=== PATIENT | male | born 1945 | race Caucasian/White ===

== ENCOUNTER 2024-05-28 18:27 | Inpatient (IN) ==
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
[2024-05-28 19:40] LABS: Basophils # (auto) 0.14 K/uL (0.00-0.20); Eosinophils # (auto) 0.22 K/uL (0.00-0.50); Eosinophils % (auto) 1.5 %; Hematocrit (blood only) 44.1 % (42.0-52.0); Hemoglobin 15.2 g/dl (14.0-18.0); Immature Granulocytes # (auto) 0.06 K/uL (0.01-0.20); Immature Granulocytes % (auto) 0.4 %; Lymphocytes # (auto) 1.85 K/uL (1.20-3.40); Lymphocytes % (auto) 12.9 %; Mean Corpuscular Hemoglobin 28.7 pg (25.0-34.0); Mean Corpuscular Hgb Conc 34.5 g/dL (32.0-36.0); Mean Corpuscular Volume 83.2 fL (80.0-100.0); Mean Platelet Volume 9.5 fL (9.4-12.4); Monocytes # (auto) 1.18 K/uL (0.11-0.59); Monocytes % (auto) 8.2 %; Neutrophils # (auto) 10.93 K/uL (1.40-6.50); Platelet Count 247 K/uL (130-400); RDW Coefficient of Variation 13.7 % (11.5-14.5); RDW Standard Deviation 41.7 fL (36.4-46.3); White Blood Count 14.38 K/ul (4.8-10.8)
[2024-05-28 19:57] LABS: Albumin Globulin Ratio 1.1 (0.9-2); BUN Creatinine Ratio 25.4 (10-20); Bilirubin,Total 0.5 mg/dl (0.2-1.0); Calcium 9.4 mg/dl (8.6-10.3); Creatinine Clr Calc Pharmacy 58.5 ml/min; Globulin 3.6 gm/dl (2.5-4.0); Potassium 3.7 mmol/L (3.5-5.1); Total Protein 7.6 gm/dl (6.0-8.3)
[2024-05-28 20:07] LABS: Partial Thromboplastin Time 26 Seconds (21-31); Prothrombin Time 11.3 Seconds (9.0-12.0)
[2024-05-28] MEDS: SODIUM CHLORIDE 0.9% 1,000 ML IV ONE (20:37)
[2024-05-28] MEDS: HALOPERIDOL LACTATE 5 MG/ML 1 ML VIAL IV STA (20:37)
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
[2024-05-28] MEDS ORDERED: PROMETHAZINE 6.25 MG/50.25 ML BAG IV PRN (21:53)
[2024-05-28] MEDS ORDERED: ACETAMINOPHEN 325 MG TAB PO PRN (21:53)
[2024-05-28] MEDS: METOPROLOL TARTRATE 25 MG TAB PO STA (23:28)
--- OUTSIDE RECORDS SUMMARY | 2024-05-29 00:37 | External Medical Summary | Summary of Care ---
Author Name Unknown Organization [facility] Address [address] [place] [address] Phone [phone] Care Team Providers Care Senior Payroll Manager Name Role Phone Roger Rivas MD Primary Care Provider [phone]- [phone] Encounter Details Date Type Department Care Team (Late st Contact Info) Description 05/22/2024 Orders Only Outcomes Research Department [address] [place] [address] Evelyn Panchal CHRA [employer] [facility] Other*[id number] Allergies Active Allergy Reactions Criticality Noted Date Comments Atorvastatin Calcium 11/11/2005 Facial swelling Lisinopril 10/18/2006 Dry cough Meloxicam 04/01/2010 delrium Simvastatin 11/11/2005 Facial sweliing documented as of this encounter (statuses as of 05/22/2024) Medications ASPIRIN 81 MG PO CHEW One pill by mouth once a day with food 0 0 06/29/19 08 Active INSULIN SYRINGES (DISPOSABLE) U-100 0.3 ML MISCIndications:DM type 2, goal A1c below 7 use as directed daily 1 Box 11 01/24/20 13 Active nitroglycerin (NITROSTAT) 0.4 MG SUBLIndications:Ch est pain one tab under tongue as needed for chest pain maximum 3 doses 25 Tab 6 06/12/19 17 Active traMADol (ULTRAM) 50 MG TabletIndications: Acute bilateral thoracic back pain,Acute bilateral low back pain without sciatica TAKE 1 TABLET BY MOUTH EVERY 6 HOURS WITH 325 MG OF TYLENOL FOR PAIN 60 Tab 08/25/19 18 Active Blood Glucose Monitoring Suppl (ONETOUCH VERIO) w/Device KITIndications:Typ e 2 diabetes mellitus with hemoglobin A1c goal of less than 8.0% (HCC) Use to check blood sugars daily E11.9 1 Kit 12/15/19 18 Active Additional Information Patient not taking.Reported on 12/24/2022 Glucose Blood (ONETOUCH VERIO) STRPIndications:Ty pe 2 diabetes mellitus with hemoglobin A1c goal of less than 8.0% (HCC) Use to check blood sugars daily E11.9 100 Strip 11 12/15/19 18 Active Additional Information Patient not taking.Reported on 12/24/2022 ONETOUCH ULTRASOFT LANCETS MISCIndications:Ty pe 2 diabetes mellitus with hemoglobin A1c goal of less than 8.0% (HCC) Use to check blood sugars daily 1 Box Dosing Unit 11 12/15/19 18 Active Vitamin B-12 5000 MCG Oral Lozenge Take by mouth daily. Active Acetaminophen ER 650 MG Oral Tablet Extended Release Take 1 Tab by mouth every 8 hours as needed for Pain, Moderate. 30 Tab 5 10/03/19 21 Active Metoprolol Tartrate 25 MG Oral Tablet (Lopressor)Indicat ions:ASCVD (arteriosclerotic cardiovascular disease),Essential hypertension with goal blood pressure less than 140/90 TAKE 1 TABLET BY MOUTH TWICE A DAY 180 Tablet 2 06/19/19 24 Active Tamsulosin HCl 0.4 MG Oral Capsule (Flomax)Indication s:BPH with obstruction/lower urinary tract symptoms TAKE 1 CAPSULE BY MOUTH EVERY MORNING 90 Capsule 3 07/08/19 24 Active Insulin Aspart Prot & Aspart (70-30) 100 UNIT/ML Subcutaneous Suspension (NovoLOG Mix 70/30)Indications: Type 2 diabetes mellitus with hemoglobin A1c goal of less than 8.0% ([facility]) Inject 15 Units under the skin daily with breakfast AND 24 Units daily with dinner. 10 mL 5 12/01/19 24 Active oxyBUTYnin Chloride ER 5 MG Oral Tablet Extended Release 24 Hour (Ditropan XL)Indications:Uri nary frequency TAKE 1 TABLET BY MOUTH EVERY DAY IN THE MORNING 90 Tablet 3 01/12/20 24 Active Topiramate 50 MG Oral Tablet (topAMAX)Indicatio ns:Essential tremor TAKE 1 TABLET BY MOUTH EVERY DAY IN THE MORNING 90 Tablet 3 01/12/20 24 Active BD Insulin Syringe U/F 30G X 1/2" 0.5 ML (Insulin Syringe-Needle U-100) USE TWICE PER DAY DIRECTED 200 Each 3 01/12/20 24 Active Carbidopa-Levodopa 25-100 MG Oral Tablet (Sinemet)Indicatio ns:Parkinson's disease (HCC) TAKE 1 TABLET BY MOUTH EVERY DAY IN THE MORNING 90 Tablet 3 01/12/20 24 Active Folic Acid 1 MG Oral Tablet TAKE 1 TABLET BY MOUTH EVERY DAY IN THE MORNING 90 Tablet 3 01/12/20 24 Active documented as of this encounter (statuses as of 05/22/2024) Active Problems Problem Noted Date Diagnosed Date Diabetes mellitus with nephropathy 05/28/2020 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 documented as of this encounter (statuses as of 05/22/2024) Resolved Problems Problem Noted Date Diagnosed Date Resolved Date Kidney disease, chronic, sta ge III (GFR 30-59 ml/min) 03/30/2016 12/04/2016 Overview: Per CKD protocol #1 Sebaceous cyst 11/01/2013 10/03/2014 Bronchitis, complicated 08/21/201309/19 Cough 08/21/2013 10/03/2014 Viral URI with cough 08/21/2013 015 HTN, goal below 140/80 11/09/201109/21 Overview: Per HTN Protocol #27. JEFFREY inhibitor intolerance 09/03/2011 Essential and other specified forms of tremor 09/03/19 11 10/03/2014 Obesity, morbid (more than 1 00 lbs over ideal weight or BMI > 40) 09/03/2009 10/13/2016 Overview (06/10/2015): Per Obesity Protocol, #19 ICD-10 update of inactive term HTN, GOAL BELOW 130/80 04/18/200911/11 Overview (04/18/2009): Per HTN Taxonomy. Type 2 diabetes mellitus wit h hemoglobin A1c goal of less than 7.0% 01/17/2009 04/28/2013 Overview (07/16/2015): Per Diabetes Taxonomy. ICD-10 update of inactive term HTN, goal below 140/90 01/16/200904/18 Overview (04/18/2009): Per HTN Taxonomy. Major depressive disorder 04/09/2008 Overview (01/12/2017): ICD-10 update of inactive term Statin intolerance 06/16/2006 7 REFUSES INFLUENZA VAC 02/17/20062005 CORONARY ATHEROSCLER. OF SUMANTH SULEAMN CORONARY VESSEL 02/17/2006 05/31/2014 REFUSED INFLUENZA VAC 02/17/20062008 Type 2 diabetes mellitus wit h hemoglobin A1c goal of less than 7.0% 12/25/2004 01/17/2009 Overview (07/16/2015): Per Diabetes Taxonomy. ICD-10 update of inactive term Dyslipidemia, goal to be determined 12/25/2004 03/07/2009 Overview (03/07/2009): Per Lipid Taxonomy. HTN, goal below 130/80 10/03 documented as of this encounter (statuses as of 05/22/2024) Immunizations Name Administration Dates Next Due COVID-19 mRNA, LNP-s, No Pre serve, 2-Dose Series (Pfizer) 07/10/2020,06/19/2020 Pneumococcal Conjugate Vacc, 13 Valent (Prevnar) 06/05/2015 Pneumococcal Polysaccharide PPV23 (Pneumovax) 09/03/2011,11/11/2005 Seasonal Influenza Vac., MDV , IM, 0.5 mL (Fluzone) 01/31/2014,01/23/2013,01/06/2012,11/21,01/06/2010,12/18/2008,04/03/19 09(Deferred: Patient Refused) Seasonal Influenza, PF, 6 M & above, IM , (FluLaval or Fluzone) 12/20/2019,12/14/2018,12/14/2017 12/15/2019 Seasonal Influenza, Quadriva lent Hd (Fluzone Hd) 12/24/2022,11/29/2020 Seasonal Influenza, Quadriva lent, No Preserve, IM 12/04/2016,02/17/2016,02/04/2015 TD, Preservative Free 06/13/2018 TDAP, Age 7 and older, IM (Adacel) 10/31/2007 documented as of this encounter Social History Tobacco Use Types Packs/Day Years Used Date Smoking Tobacco: Former Cigarettes Q uit: 03/22/1989 Smokeless Tobacco: Never Alcohol Use Standard Drinks/Week Comments No 0 (1 standard drink = 0.6 oz pur e alcohol) PHQ-2 Answer Date Recorded PHQ Adult Total Score 1 09/01/2021 Hunger Vital Sign Answer Date Recorded Within the past 12 months, y ou worried that your food would run out before you got the money to buy more. Never true 09/02/19 22 Within the past 12 months, t he food you bought just didn't last and you didn't have money to get more. Never true 09/01/2021 Sex and Gender Information Value Date Recorded Sex Assigned at Male 06/13/2018 10:39 AM EDT Legal Sex Male 7:19 AM EST Gender Identity Male 06/13/2018 10:39 AM EDT Sexual Orientation Straight 06/13/2018 10 :39 AM EDT documented as of this encounter Plan of Treatment Scheduled Orders Name Type Priority Associated Diagnoses Orde r Schedule MYCODE SUBSEQUENT ADULT Lab Routine [employer] Other*[id number] Every 6 Months for 2 Occurrences starting 05/22/2024 until 06/11/2025 Scheduled Procedures Name Priority Associated Diagnoses Date/Ti me COLONOSCOPY FLEXIBLE PROXIMAL DIAGNOSTIC Recall Colon cancer screening Health Maintenance Due Date Last Done Comments Zoster Vaccines (1 of 2) 1994 Adult Wellness Visit 09/01/2022 09/01/2021, 08/30/19 21 Depression Monitoring 09/01/2022 09/01/2021 Diabetic Eye Exam 09/01/2022 09/01/2021, , 11/23/2019, Additional history exists Diabetic Foot Exam 09/01/2022 09/01/2021, 0 08/29/2020, 11/23/2019, Additional history exists HbA1c 06/25/2023 12/24/2022, 05/21, 12/11/2021, Additional history exists COVID-19 Vaccine ( season) 2023 07/10/2020, 06/19/2020 Influenza Vaccine (FLU shot) (#1) 2023 12/24/2022, 11/29/2020, 12/20/2019, Additional history exists GFR 12/25/2023 12/24/2022, 05/21, 12/11/2021, Additional history exists Albumin/Creatinine Ratio 01/23/2024 023, 02/02/2022, 12/11/2021, Additional history exists DTap/Tdap Vaccines (3 - Td or Tdap) 06/13/2028 06/13/2018, 10/31/2007 Pneumococcal Vaccine: 50+ Years Completed 06/05/2015, 09/03/2011, 11/11/2005 HPV (Gardasil) Vaccine Aged Out No lo nger eligible based on patient's age to complete this topic Hepatitis B Vaccine Aged Out No longe r eligible based on patient's age to complete this topic MENINGOCOCCAL (MENACTRA/MENVEO) Aged Out No longer eligible based on patient's age to complete this topic Meningitis B Vaccine (Bexsero/Trumemba) Aged Out No longer eligible based on patient's age to complete this topic documented as of this encounter Medical Devices Not on filedocumented as of this encounter Visit Diagnoses Diagnosis [employer] Other*[id number] documented in this encounter Care Teams Senior Payroll Manager Relationship Specialty Start Date End Date Roger Rivas MD PCP - General 12/03/04 documented as of this encounter
--- OUTSIDE RECORDS SUMMARY | 2024-05-29 00:38 | External Medical Summary | Summary of Care ---
Author Name Unknown Organization [facility] Address [address] [place] [address] Phone [phone] Care Team Providers Care Waistline Joiner Overlock Name Role Phone Cheryl Patel MD Primary Care Provider [phone]- [phone] Reason for Visit * Reason Comments eRx-Medication Refill Encounter Details Date Type Department Care Team (Late st Contact Info) Description 01/10/2024 Refill [facility] [address] [place] [address] Cheryl Patel MD [address] [place] [address] Urinary frequency; Essential tremor; Parkinson's disease (HCC) Allergies Active Allergy Reactions Criticality Noted Date Comments Atorvastatin Calcium 11/11/2005 Facial swelling Lisinopril 10/18/2006 Dry cough Meloxicam 04/01/2010 delrium Simvastatin 11/11/2005 Facial sweliing documented as of this encounter (statuses as of 01/12/2024) Medications Medication Sig Dispensed Refills Start Date End Date Status ASPIRIN 81 MG PO CHEW One pill by mouth once a day with food 0 0 8 Active INSULIN SYRINGES (DISPOSABLE) U-100 0.3 ML MISCIndications:DM type 2, goal A1c below 7 use as directed daily 1 Box 11 3 Active nitroglycerin (NITROSTAT) 0.4 MG SUBLIndications:Melanie st pain one tab under tongue as needed for chest pain maximum 3 doses 25 Tab 6 7 Active traMADol (ULTRAM) 50 MG TabletIndications:A cute bilateral thoracic back pain,Acute bilateral low back pain without sciatica TAKE 1 TABLET BY MOUTH EVERY 6 HOURS WITH 325 MG OF TYLENOL FOR PAIN 60 Tab 8 Active Blood Glucose Monitoring Suppl (Venuefox) w/Device KITIndications:Type 2 diabetes mellitus with hemoglobin A1c goal of less than 8.0% (HCC) Use to check blood sugars daily E11.9 1 Kit 8 Active Additional Information Patient not taking.Reported on 12/24/2022 Glucose Blood (Venuefox) STRPIndications:Typ e 2 diabetes mellitus with hemoglobin A1c goal of less than 8.0% (HCC) Use to check blood sugars daily E11.9 100 Strip 11 8 Active Additional Information Patient not taking.Reported on 12/24/2022 Base Forty[employer]CH ULTRASOFT LANCETS MISCIndications:Typ e 2 diabetes mellitus with hemoglobin A1c goal of less than 8.0% (HCC) Use to check blood sugars daily 1 Box Dosing Unit 11 8 Active Vitamin B-12 5000 MCG Oral Lozenge Take by mouth daily. Active Acetaminophen ER 650 MG Oral Tablet Extended Release Take 1 Tab by mouth every 8 hours as needed for Pain, Moderate. 30 Tab 5 1 Active Metoprolol Tartrate 25 MG Oral Tablet (Lopressor)Indicati ons:ASCVD (arteriosclerotic cardiovascular disease),Essential hypertension with goal blood pressure less than 140/90 TAKE 1 TABLET BY MOUTH TWICE A DAY 180 Tablet 2 4 Active Tamsulosin HCl 0.4 MG Oral Capsule (Flomax)Indications :BPH with obstruction/lower urinary tract symptoms TAKE 1 CAPSULE BY MOUTH EVERY MORNING 90 Capsule 3 4 Active Insulin Aspart Prot & Aspart (70-30) 100 UNIT/ML Subcutaneous Suspension (NovoLOG Mix 70/30)Indications:T ype 2 diabetes mellitus with hemoglobin A1c goal of less than 8.0% (HCC) Inject 15 Units under the skin daily with breakfast AND 24 Units daily with dinner. 10 mL 5 4 Active oxyBUTYnin Chloride ER 5 MG Oral Tablet Extended Release 24 Hour (Ditropan XL)Indications:Urin debbie frequency TAKE 1 TABLET BY MOUTH EVERY DAY IN THE MORNING 90 Tablet 3 4 Active Topiramate 50 MG Oral Tablet (topAMAX)Indication s:Essential tremor TAKE 1 TABLET BY MOUTH EVERY DAY IN THE MORNING 90 Tablet 3 4 Active BD Insulin Syringe U/F 30G X 1/2" 0.5 ML (Insulin Syringe-Needle U-100) USE TWICE PER DAY DIRECTED 200 Each 3 4 Active Carbidopa-Levodopa 25-100 MG Oral Tablet (Sinemet)Indication s:Parkinson's disease (HCC) TAKE 1 TABLET BY MOUTH EVERY DAY IN THE MORNING 90 Tablet 3 4 Active Folic Acid 1 MG Oral Tablet TAKE 1 TABLET BY MOUTH EVERY DAY IN THE MORNING 90 Tablet 3 4 Active BD Insulin Syringe U/F 30G X 1/2" 0.5 ML (Insulin Syringe-Needle U-100) USE TWICE PER DAY DIRECTED 200 Each 1 3 01/12/20 24 Discontinued Topiramate 50 MG Oral Tablet (topAMAX)Indication s:Essential tremor TAKE 1 TABLET BY MOUTH EVERY DAY IN THE MORNING 90 Tablet 3 4 01/12/20 24 Discontinued oxyBUTYnin Chloride ER 5 MG Oral Tablet Extended Release 24 Hour (Ditropan XL)Indications:Urin debbie frequency TAKE 1 TABLET BY MOUTH EVERY DAY IN THE MORNING 90 Tablet 3 4 01/12/20 24 Discontinued Carbidopa-Levodopa 25-100 MG Oral Tablet (Sinemet)Indication s:Parkinson's disease (HCC) TAKE 1 TABLET BY MOUTH EVERY DAY IN THE MORNING 90 Tablet 3 4 01/12/20 24 Discontinued Folic Acid 1 MG Oral Tablet TAKE 1 TABLET BY MOUTH EVERY DAY IN THE MORNING 90 Tablet 4 01/12/20 24 Discontinued documented as of this encounter (statuses as of 01/12/2024) Active Problems Problem Noted Date Diagnosed Date [...] A1c goal of less than 8.0% 04/28/2013 Overview: ICD-10 update of inactive term DYSLIPIDEMIA, GOAL LDL BELOW 70 03/07/2009 Overview: Per Lipid Taxonomy. documented as of this encounter (statuses as of 01/12/2024) Resolved Problems Problem Noted Date Diagnosed Date [...] weight or BMI > 40) 09/03/2009 10/13/2016 Overview: Per Obesity Protocol, #19 ICD-10 update of inactive term HTN, GOAL BELOW 130/80 04/18/200911/11 Overview: Per HTN Taxonomy. Type 2 diabetes mellitus wit h hemoglobin A1c goal of less than 7.0% 01/17/2009 04/28/2013 Overview: Per Diabetes Taxonomy. ICD-10 update of inactive term HTN, goal below 140/90 01/16/200904/18 Overview: Per HTN Taxonomy. Major depressive disorder 04/09/2008 Overview: ICD-10 update of inactive term Statin intolerance 06/16/2006 7 REFUSES INFLUENZA VAC 02/17/20062005 CORONARY ATHEROSCLER. OF [place] SULEMAN CORONARY VESSEL 02/17/2006 05/31/2014 REFUSED INFLUENZA VAC 02/17/20062008 Type 2 diabetes mellitus wit h hemoglobin A1c goal of less than 7.0% 12/25/2004 01/17/2009 Overview: Per Diabetes Taxonomy. ICD-10 update of inactive term Dyslipidemia, goal to be determined 12/25/2004 03/07/2009 Overview: Per Lipid Taxonomy. HTN, goal below 130/80 10/03 documented as of this encounter (statuses as of 01/12/2024) Immunizations Name Administration Dates Next Due COVID-19 [...] Assigned at Male 06/13/2018 10:39 AM EDT Gender Identity Male 06/13/2018 10:39 AM EDT Sexual Orientation Straight 06/13/2018 10 :39 AM EDT Job Start Date Occupation Industry Not on file Not on file Not on file documented as of this encounter Miscellaneous Notes * Telephone Encounter - Cheryl Patel MD - 01/12/2024 1:44 PM EDTSigned Prescriptions: Disp Refills oxyBUTYnin Chloride ER 5 MG Oral Tablet Ex*90 Tab*3 Sig: TAKE 1 TABLET BY MOUTH EVERY DAY IN THE MORNINGAuthorizing Provider: CHERYL PATEL Topiramate 50 MG Oral Tablet (topAMAX) 90 Tab*3 Sig: TAKE 1 TABLET BY MOUTH EVERY DAY IN THE MORNINGAuthorizing Provider: CHERYL PATEL BD Insulin Syringe U/F 30G X 1/2" 0.5 ML (*200 Ea*3 Sig: USE TWICE PERDAY DIRECTEDAuthorizing Provider: CHERYL PATEL Carbidopa-Levodopa 25-100 MG Oral Tablet (*90 Tab*3 Sig: TAKE 1 TABLET BY MOUTH EVERY DAY IN THE MORNINGAuthorizing Provider: CHERYL PATEL Folic Acid 1 MG Oral Tablet 90 Tab*3 Sig: TAKE 1 TABLET BY MOUTH EVERY DAY IN THE MORNINGAuthorizing Provider: CHERYL PATEL * Telephone Encounter - Interface, E-Rx Ss Inbound - 01/12/2024 12:20 PM EDT Pending Prescriptions: Disp Refills oxyBUTYnin Chloride ER 5 MG Oral Tablet Ex*90 Tab*0 Sig: TAKE 1 TABLET BY MOUTH EVERY DAY IN THE MORNING Topiramate 50 MG Oral Tablet (topAMAX) 90 Tab*0 Sig: TAKE 1 TABLET BY MOUTH EVERY DAY IN THE MORNING BD Insulin Syringe U/F 30G X 1/2" 0.5 ML (*200 Ea*0 Sig: USE TWICE PER DAY DIRECTED Carbidopa-Levodopa 25-100 MG Or al Tablet (*90 Tab*0 Sig: TAKE 1 TABLET BY MOUTH EVERY DAY IN THE MORNING Folic Acid 1 MG Oral Tablet 90 Tab*0 Sig: TAKE 1 TABLET BY MOUTH EVERY DAY IN THE MORNING * Telephone Encounter - Rain Almodovar CPhT - 01/12/2024 8:45 AM EDTPending Prescriptions: Disp Refills oxyBUTYnin Chloride ER 5 MG Oral Tablet Ex*90 Tab*0 Sig: TAKE 1 TABLET BY MOUTH EVERY DAY IN THE MORNING Topiramate 50 MG Oral Tablet (topAMAX) 90 Tab*0 Sig: TAKE 1 TABLET BY MOUTH EVERY DAY IN THE MORNING BD Insulin Syringe U/F 30G X 1/2" 0.5 ML (*200 Ea*0 Sig: USE TWICE PER DAY DIRECTED Carbidopa-Levodopa 25-100 MG Or al Tablet (*90 Tab*0 Sig: TAKE 1 TABLET BY MOUTH EVERY DAY IN THE MORNING Folic Acid 1 MG Oral Tablet 90 Tab*0 Sig: TAKE 1 TABLET BY MOUTH EVERY DAY IN THE MORNING * Telephone Encounter - Rain Almodovar CPhT - 01/12/2024 8:44 AM EDT Received message from [facility] regarding patient needing an appointment and labs. Call Placed, Unable toreach pt, as there was no answer and no VM available to leave message. Letter created and sent to patient. Thank you, Rain Almodovar CPhT Environmental Inspector [facility]) 01/12/2024,8:44 AM * Telephone Encounter - Efren Lemus [facility] - 01/12/2024 8:22 AM EDT Pending Prescriptions: Disp Refills oxyBUTYnin Chloride ER 5 MG Oral Tablet Ex*90 Tab*0 Sig: TAKE 1 TABLET BY MOUTH EVERY DAY IN THE MORNING Topiramate 50 MG Oral Tablet (topAMAX) 90 Tab*0 Sig: TAKE 1 TABLET BY MOUTH EVERY DAY IN THE MORNING BD Insulin Syringe U/F 30G X 1/2" 0.5 ML (*200 Ea*0 Sig: USE TWICE PER DAY DIRECTED Carbidopa-Levodopa 25-100 MG Or al Tablet (*90 Tab*0 Sig: TAKE 1 TABLET BY MOUTH EVERY DAY IN THE MORNING Folic Acid 1 MG Oral Tablet 90 Tab*0 Sig: TAKE 1 TABLET BY MOUTH EVERY DAY IN THE MORNING * Telephone Encounter - Efren Lemus [facility] - 01/12/2024 8:17 AM EDT 3 rd attempt Unable to authorize medication refills for pended medication(s) at this time. Part of the protocol criteria used for refill authorization was not satisfied. Per refill protocol patient should have [place]/CR, CBC, BMP, Lipid panel, A1C, B12 on file within past year. Reviewed AMP report, Care Gaps/Health Maintenance, medications list, and for any routine labs typically ordered for this patient. Lab orders placed. Please contact patient to schedule office visit with PRIMARY CARE and advise of labs ordered for blood draw AND URINE specimen (patient will have to be able to void to provide sample).. Recommend patient to fast if able for labs. Patient may still have water and regular medications. Advise to obtain labs before requesting the next refill. Last Visit: 12/24/2022 (in office), Visit date not found (telemedicine) Next Visit: Visit date not found After contacting patient, please forward request to Cheryl Patel MD. Thank you, Erfen Lemus, PharmD Clinical Pharmacist [facility] ([facility]) [phone] 01/12/2024, 8:21 AM documented in this encounter Plan of Treatment Scheduled Procedures Name Priority Associated Diagnoses Date/Ti [...] or Tdap) 06/13/2028 06/13/2018, 10/31/2007 Pneumococcal Vaccine: 65+ Years Completed 06/05/2015, 09/03/2011, 11/11/2005 HPV (Gardasil) [...] as of this encounter Visit Diagnoses Diagnosis Urinary frequency Essential tremor Essential and other specified forms of tremor Parkinson's disease (HCC) Paralysis agitans documented in this encounter Care Teams Waistline Joiner Overlock Relationship Specialty Start Date End Date Cheryl Patel MD [address] [place] [address] PCP - General 12/03/04 documented as of this encounter
--- OUTSIDE RECORDS SUMMARY | 2024-05-29 00:38 | External Medical Summary | Summary of Care ---
Author Name Unknown Organization [facility] Address [address] [place] [address] Phone [phone] Care Team Providers Care Medical Claims Manager Name Role Phone Roger Rivas MD Primary Care Provider [phone]- [phone] Encounter Details Date Type Department Care Team (Late st Contact Info) Description 04/13/2024 Population Health External Data Unspecified Department Allergies Active Allergy Reactions Criticality Noted Date Comments Atorvastatin Calcium 11/11/2005 Facial swelling Lisinopril 10/18/2006 Dry cough Meloxicam 04/01/2010 delrium Simvastatin 11/11/2005 Facial sweliing documented as of this encounter (statuses as of 04/13/2024) Medications ASPIRIN 81 MG PO CHEW One [...] 08/25/19 18 Active Blood Glucose Monitoring Suppl (Farmia VERIO) w/Device KITIndications:Typ e 2 diabetes mellitus [...] hemoglobin A1c goal of less than 8.0% ([facility]) Use to check blood sugars daily 1 [...] hemoglobin A1c goal of less than 8.0% ([facility]) Inject 15 Units under the skin daily [...] as of this encounter (statuses as of 04/13/2024) Active Problems Problem Noted Date Diagnosed Date [...] as of this encounter (statuses as of 04/13/2024) Resolved Problems Problem Noted Date Diagnosed Date [...] as of this encounter (statuses as of 04/13/2024) Immunizations Name Administration Dates Next Due COVID-19 mRNA, LNP-s, No Pre serve, 2-Dose Series ([employer]) 07/10/2020,06/19/2020 Pneumococcal Conjugate Vacc, 13 Valent (Prevnar) [...] of this encounter Plan of Treatment Scheduled Procedures [...] 05/21, 12/11/2021, Additional history exists COVID-19 Vaccine (3 - season) 2023 07/10/2020, 06/19/2020 Influenza Vaccine (FLU [...] Not on filedocumented as of this encounter Care Teams Medical Claims Manager Relationship Specialty Start Date End Date Roger Rivas MD PCP - General 12/03/04 documented as of this encounter
--- OUTSIDE RECORDS SUMMARY | 2024-05-29 00:38 | External Medical Summary | Summary of Care ---
Author Name Unknown Organization [facility] Address [address] [place] [address] Phone [phone] Care Team Providers Care Director Of Purchasing Name Role Phone Cheryl Patel MD Primary Care Provider [phone] Encounter Details Date Type Department Care Team (Late st Contact Info) Description 12/01/2023 Refill [facility] [address] [place] [address] Cheryl Patel MD [address] [place] [address] Type 2 diabetes mellitus with hemoglobin A1c goal of less than 8.0% ([facility]) Allergies Active Allergy Reactions Criticality Noted Date Comments Atorvastatin Calcium 11/11/2005 Facial swelling Lisinopril 10/18/2006 Dry cough Meloxicam 04/01/2010 delrium Simvastatin 11/11/2005 Facial sweliing documented as of this encounter (statuses as of 12/01/2023) Medications Medication Sig Dispensed Refills Start Date End Date Status ASPIRIN 81 MG PO CHEW One pill by mouth once a day with food 0 0 06/29/2007 Active INSULIN SYRINGES (DISPOSABLE) U-100 0.3 ML MISCIndications:DM type 2, goal A1c below 7 use as directed daily 1 Box 11 01/23/2013 Active nitroglycerin (NITROSTAT) 0.4 MG SUBLIndications:Melanie st pain one tab under tongue as needed for chest pain maximum 3 doses 25 Tab 6 06/11/2016 Active traMADol (ULTRAM) 50 MG TabletIndications:A cute bilateral thoracic back pain,Acute bilateral low back pain without sciatica TAKE 1 TABLET BY MOUTH EVERY 6 HOURS WITH 325 MG OF TYLENOL FOR PAIN 60 Tab 08/24/2017 Active Blood Glucose Monitoring Suppl (Allostera PharmaTOCash Check Card VERIO) w/Device KITIndications:Type 2 diabetes mellitus with hemoglobin A1c goal of less than 8.0% (HCC) Use to check blood sugars daily E11.9 1 Kit 12/14/2017 Active Additional Information Patient not taking.Reported on 12/24/2022 Glucose Blood ([employer]ostera PharmaTOUCH VERLifeBlinx) STRPIndications:Typ e 2 diabetes mellitus with hemoglobin A1c goal of less than 8.0% (HCC) Use to check blood sugars daily E11.9 100 Strip 11 12/14/2017 Active Additional Information Patient not taking.Reported on 12/24/2022 Allostera PharmaTOUCH ULTRASOFT LANCETS MISCIndications:Typ e 2 diabetes mellitus with hemoglobin A1c goal of less than 8.0% (HCC) Use to check blood sugars daily 1 Box Dosing Unit 11 12/14/2017 Active Vitamin B-12 5000 MCG Oral Lozenge Take by mouth daily. Active Acetaminophen ER 650 MG Oral Tablet Extended Release Take 1 Tab by mouth every 8 hours as needed for Pain, Moderate. 30 Tab 5 10/02/2020 Active BD Insulin Syringe U/F 30G X 1/2" 0.5 ML (Insulin Syringe-Needle U-100) USE TWICE PER DAY DIRECTED 200 Each 1 11/17/2022 Active Topiramate 50 MG Oral Tablet (topAMAX)Indication s:Essential tremor TAKE 1 TABLET BY MOUTH EVERY DAY IN THE MORNING 90 Tablet 3 03/23/2023 Active oxyBUTYnin Chloride ER 5 MG Oral Tablet Extended Release 24 Hour (Ditropan XL)Indications:Urin debbie frequency TAKE 1 TABLET BY MOUTH EVERY DAY IN THE MORNING 90 Tablet 3 03/23/2023 Active Carbidopa-Levodopa 25-100 MG Oral Tablet (Sinemet)Indication s:Parkinson's disease (HCC) TAKE 1 TABLET BY MOUTH EVERY DAY IN THE MORNING 90 Tablet 3 03/23/2023 Active Metoprolol Tartrate 25 MG Oral Tablet (Lopressor)Indicati ons:ASCVD (arteriosclerotic cardiovascular disease),Essential hypertension with goal blood pressure less than 140/90 TAKE 1 TABLET BY MOUTH TWICE A DAY 180 Tablet 2 06/19/2023 Active Tamsulosin HCl 0.4 MG Oral Capsule (Flomax)Indications :BPH with obstruction/lower urinary tract symptoms TAKE 1 CAPSULE BY MOUTH EVERY MORNING 90 Capsule 3 07/08/2023 Active Folic Acid 1 MG Oral Tablet TAKE 1 TABLET BY MOUTH EVERY DAY IN THE MORNING 90 Tablet 11/18/2023 Active Insulin Aspart Prot & Aspart (70-30) 100 UNIT/ML Subcutaneous Suspension (NovoLOG Mix 70/30)Indications:T ype 2 diabetes mellitus with hemoglobin A1c goal of less than 8.0% (HCC) Inject 15 Units under the skin daily with breakfast AND 24 Units daily with dinner. 10 mL 5 12/01/2023 Active NovoLOG Mix 70/30 (70-30) 100 UNIT/ML Subcutaneous Suspension (Insulin Aspart Protamine & Aspart)Indications: Type 2 diabetes mellitus with hemoglobin A1c goal of less than 8.0% (HCC) INJECT 15 UNITS AT BREAKFAST AND 24 UNITS AT SUPPER OR DIRECTED 10 mL 5 06/02/2023 12/01/19 24 Discontinu ed(Refill) documented as of this encounter (statuses as of 12/01/2023) Active Problems Problem Noted Date Diagnosed Date [...] as of this encounter (statuses as of 12/01/2023) Resolved Problems Problem Noted Date Diagnosed Date [...] INFLUENZA VAC 02/17/20062005 CORONARY ATHEROSCLER. OF [place] CORONARY VESSEL 02/17/2006 05/31/2014 REFUSED INFLUENZA VAC 02/17/20062008 Type 2 diabetes mellitus wit h hemoglobin A1c goal of less than 7.0% 12/25/2004 01/17/2009 Overview: Per Diabetes Taxonomy. ICD-10 update of inactive term Dyslipidemia, goal to be determined 12/25/2004 03/07/2009 Overview: Per Lipid Taxonomy. HTN, goal below 130/80 10/03 documented as of this encounter (statuses as of 12/01/2023) Immunizations Name Administration Dates Next Due COVID-19 mRNA, LNP-s, No Pre serve, 2-Dose Series (Pfizer) 07/10/2020,06/19/2020 Pneumococcal Conjugate Vacc, 13 Valent (Prevnar) 06/05/2015 Pneumococcal Polysaccharide PPV23 (Pneumovax) 09/03/2011,11/11/2005 Seasonal Influenza, PF, 6 M & above, IM , (FluLaval or Fluzone) 12/20/2019,12/14/2018,12/14/2017 12/15/2019 Seasonal Influenza, Quadriva lent Hd (Fluzone Hd) 12/24/2022,11/29/2020 Seasonal Influenza, Quadriva lent, No Preserve, IM 12/04/2016,02/17/2016,02/04/2015 Seasonal Influenza, Trivalen t, (IIV3), with Preserv, (Fluzone) 01/31/2014,01/23/2013,01/06/2012,11/21,01/06/2010,12/18/2008,04/03/19 09(Deferred: Patient Refused) TD, Preservative Free 06/13/2018 TDAP, Age 6 [...] Telephone Encounter - Cheryl Patel MD - 12/01/2023 10:08 AM EDTSigned Prescriptions: Disp Refills Insulin Aspart Prot & Aspart (70-30) 100 U*10 mL 5 Sig: Inject 15 Units under the skin daily with breakfast AND 24 Units daily with dinner.Authorizing Provider:CHERYL PATEL * Telephone Encounter - Mary King LPN - 12/01/2023 9:17 AM EDT Patient is requesting a refill of Novolog mix 70-30 vial be sent to [facility] pharmacy. Script and pharmacy are both selected please sign if agreeable. documented in this encounter Plan of Treatment [...] 11/23/2019, Additional history exists HbA1c 06/25/2023 12/24/2022, 03/06/2022, 12/11/2021, Additional history exists COVID-19 Vaccine ( - 2022- season) 2023 07/10/2020, 06/19/2020 Influenza Vaccine (FLU [...] as of this encounter Visit Diagnoses Diagnosis Type 2 diabetes mellitus with hemoglobin A1c goal of less than 8.0% (HCC) documented in this encounter Care Teams Director Of Purchasing Relationship Specialty Start Date End Date Cheryl Patel MD [address] [place] [address] PCP - General 12/03/04 documented as of this encounter
[2024-05-29 00:43] LABS: Thyroid Stimulating Hormone 1.645 uIu/ml (0.300-4.500)
[2024-05-29] MEDS ORDERED: GLUCOSE 40% GEL 15 GM TUBE PO PRN (01:05)
[2024-05-29] MEDS ORDERED: GLUCOSE 10 TAB/TUBE PO PRN (01:05)
[2024-05-29] MEDS ORDERED: CARBOHYDRATES FOR HYPOGLYCEMIA PO PRN (01:05)
[2024-05-29] MEDS ORDERED: GLUCAGON FOR INJ 1 MG VIAL SQ PRN (01:05)
[2024-05-29] MEDS ORDERED: DEXTROSE 50% 50 ML SYRINGE IV PRN (01:05)
[2024-05-29] MEDS: INSULIN ASPART PER UNIT CHARGE SC SCH (02:22)
[2024-05-29] MEDS: LORazepam 2 MG/1 ML VIAL IV PRN (03:18)
[2024-05-29 04:34] LABS: Basophils # (auto) 0.13 K/uL (0.00-0.20); Basophils % (auto) 1.2 %; Eosinophils # (auto) 0.41 K/uL (0.00-0.50); Eosinophils % (auto) 3.8 %; Hemoglobin 14.4 g/dl (14.0-18.0); Immature Granulocytes # (auto) 0.03 K/uL (0.01-0.20); Immature Granulocytes % (auto) 0.3 %; Lymphocytes # (auto) 2.34 K/uL (1.20-3.40); Lymphocytes % (auto) 21.5 %; Mean Corpuscular Hemoglobin 28.2 pg (25.0-34.0); Mean Corpuscular Hgb Conc 33.5 g/dL (32.0-36.0); Mean Corpuscular Volume 84.3 fL (80.0-100.0); Mean Platelet Volume 9.5 fL (9.4-12.4); Monocytes # (auto) 1.16 K/uL (0.11-0.59); Monocytes % (auto) 10.7 %; Neutrophils % (auto) 62.5 %; Platelet Count 236 K/uL (130-400); RDW Coefficient of Variation 13.9 % (11.5-14.5); RDW Standard Deviation 42.9 fL (36.4-46.3); White Blood Count 10.87 K/ul (4.8-10.8)
[2024-05-29 04:45] LABS: BUN Creatinine Ratio 23.1 (10-20); Calcium 8.9 mg/dl (8.6-10.3); Creatinine Clr Calc Pharmacy 61.7 ml/min; Potassium 3.6 mmol/L (3.5-5.1)
[2024-05-29] MEDS: METOPROLOL TARTRATE 25 MG TAB PO SCH (10:10)
[2024-05-29] MEDS: CYANOCOBALAMIN (B-12) 500 MCG TABLET PO SCH (10:10)
[2024-05-29] MEDS: FOLIC ACID 1 MG TAB PO SCH (10:10)
[2024-05-29] MEDS: TAMSULOSIN HCL 0.4 MG CAP PO SCH (10:10)
[2024-05-29] MEDS: LANTUS PER UNIT CHARGE SQ SCH (10:10)
[2024-05-29] MEDS: OXYBUTYNIN CHLORIDE XL 5 MG TABCR PO SCH (11:56)
[2024-05-29] MEDS: TOPIRAMATE 50 MG TAB PO SCH (11:56)
[2024-05-29] MEDS: CARBIDOPA/LEVODOPA 25/100MG TAB PO SCH (11:57)
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
--- NOTE | 2024-05-29 14:14 | Hospitalist Progress Note ---
Date of Service May 29, 2024 Assessment & Plan (1) Dementia: Plan: This is an 79 yr old M who has a significant PMH of T2DM, HTN, HLD, Hyperhomocysteinemia, BPH, parkinson disease, hx of dvt and depression who presents to ED after having aggressive behavior with family and intermittent suicidal thoughts. 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 TRANSLATOR INTERPRETER had suicidal thoughts which prompted ED eval He was seen and evaluated by psych, felt low likelihood of harming self 1:1 and suicidal precautions removed hold oxybutnin for now given its anticholinergic side effects - it was started in December with reported increased behavior in January appreciate psych recommendations: will trial escitalopram 5mg daily and abilify 2.5mg daily #T2DM a1c 7.8, on insulin, continue per protocol #CAD/HTN/HLD: continue asa, metoprolol #DVT ppx: Add SQ Lovenox FULL CODE PCP: Rob Dispo: admitted to medical, pt to need placement as family unable to care for him at home given progressive dementia Spoke with pt Isha. She is very overwhelmed with what they are going to do for Mr. Valadez and how they will afford. She was provided update with starting new psych medications. Will discuss with CM pts concerns Ms. Isha Valadez, contact #[phone]. Pt was seen and examined in collaboration with Dr. Garsia, please see addendum I spent a total of 48 minutes coordinating, documenting and providing care for this patient excluding time spent in the performance of separately billed services or time spent by another provider/QHP. Admission and Anticipated Discharge Date Admission Date: May 28, 2024 Supervising Physician Co-Signing Physician Notes Patient is seen and examined at bedside. Pleasant, no agitation during my encounter. Offers no complaints. Denies any suicidal thoughts currently. Also denies any chest pain, dyspnea, nausea, vomiting, abdominal pain. On exam patient is well-built and nourished, no apparent distress, normocephalic atra umatic, EOMI, normal breath sounds, clear to auscultation, S1-S2, no murmur, no pedal edema, abdomen soft, nontender, normal bowel sounds, alert, awake, oriented, grossly no focal deficits. Patient is currently being managed for suspected dementia with behavioral disturbance, Parkinson's disease. Appreciate psychiatry input. Started on Abilify, escitalopram. Agree with holding oxybutynin for now. Bladder scan as needed to monitor for any urinary retention. Case management to help with discharge planning. I personally interviewed and examined the patient at bedside. I have reviewed the advanced practitioner's documentation on the date of service referred in note and agree with plan. Patient's care is coordinated with Grace Espinoza PA-C. Please refer to the documentation above for details of patient's presentation and for discussion of other issues. I spent a total [id number] coordinating, documenting, and providing care for this patient excluding time spent in the performance of separately billed services or time spent by another provider/QHP. Subjective Pt was seen and examined in room C4 as ED hold. Spoke with ED nurse who offers no concerns. Pts 1:1 was lifted over night and he is no longer having suicidal thoughts. He denies feeling down or depressed. He denies f/c/s, chest pain, sob, n/v. Appetite he reports is good. Review of Systems Review of Systems: All systems reviewed & are unremarkable except as noted in HPI & below Physical Exam Physical Exam: Gen: WD/WN, elderly, M, lying in bed, NAD, A&O x2 person/place HEENT: Normocephalic, atraumatic, conjunctivae moist, sclerae anicteric, mucous membranes moist. Lung: Clear to Auscultation bilaterally, no wheezes/rales/rhonchi Heart: Regular rate, regular rhythm, no murmurs, rubs, or gallops Abdomen: Soft, NT, ND +BS x 4 Extremities: No edema Skin: Warm, no rash, negative turgor. Results & Data Results & Data Vital Signs (Past 12 Hours) Vital Signs Temp Pulse Pulse Pulse Resp BP Pulse Ox 05/29/24 12:46 36.4 C L 63 18 118/66 94 05/29/24 11:00 65 21 124/64 21 L 05/29/24 08:24 71 21 113/62 93 05/29/24 07:43 81 O2 Del Method 05/29/24 12:46 Room Air 05/29/24 11:00 Room Air 05/29/24 08:24 Room Air 05/29/24 07:43 Laboratory Results I have independently reviewed and interpreted patient's cbc, bmp Medications Administered Current Inpatient Medications Acetaminophen (Acetaminophen 325 Mg Tab) 650 mg PO QID PRN PRN Reason: pain/fever Stop: 06/27/24 21:52 Carbidopa/Levodopa (Carbidopa/Levodopa 25/100mg Tab) 1 tab PO DAILY MARIELLE Stop: 06/28/24 08:59 Last Admin: 05/29/24 11:57 Dose: 1 tab Cyanocobalamin (Cyanocobalamin (B-12) 500 Mcg Tablet) 1,000 mcg PO DAILY MARIELLE Stop: 06/28/24 08:59 Last Admin: 05/29/24 10:10 Dose: 1,000 mcg Dextrose (Dextrose 50% 50 Ml Syringe) 25 - 50 ml IV UD PRN; Protocol PRN Reason: Hypoglycemia Protocol Stop: 06/28/24 01:04 Folic Acid (Folic Acid 1 Mg Tab) 1 mg PO QAM MARIELLE Stop: 06/28/24 08:59 Last Admin: 05/29/24 10:10 Dose: 1 mg Glucagon (Glucagon For Inj 1 Mg Vial) 1 mg SQ UD PRN; Protocol PRN Reason: Hypoglycemia Protocol Stop: 06/28/24 01:04 Glucose (Glucose 40% Gel 15 Gm Tube) 15 - 30 gm PO UD PRN; Protocol PRN Reason: Hypoglycemia Protocol Stop: 06/28/24 01:04 Glucose (Glucose 10 Tab/Tube) 4 - 8 tab PO UD PRN; Protocol PRN Reason: Hypoglycemia Protocol Stop: 06/28/24 01:04 Promethazine HCl (Phenergan) 6.25 mg in 50.25 mls @ 201 mls/hr IV Q6H PRN PRN Reason: Nausea And Vomiting Stop: 06/27/24 21:52 Insulin Aspart (Insulin Aspart Per Unit Charge) 0 units SC ACHS [facility] Stop: 06/28/24 01:04 Last Admin: 05/29/24 11:55 Dose: 5 units Insulin Glargine (Lantus Per Unit Charge) 5 units SQ DAILY MARIELLE Stop: 06/28/24 08:59 Last Admin: 05/29/24 10:10 Dose: 5 units Lorazepam (Lorazepam 2 Mg/1 Ml Vial) 0.25 mg IV Q4H PRN PRN Reason: Anxiety/Agitation Stop: 06/27/24 21:53 Last Admin: 05/29/24 03:18 Dose: 0.25 mg Metoprolol Tartrate (Metoprolol Tartrate 25 Mg Tab) 25 mg PO BID MARIELLE Stop: 06/28/24 08:59 Last Admin: 05/29/24 10:10 Dose: 25 mg Miscellaneous (Carbohydrates For Hypoglycemia ) 15 - 30 gm PO UD PRN PRN Reason: Hypoglycemia Protocol Stop: 06/28/24 01:04 Oxybutynin Chloride (Oxybutynin Chloride Xl 5 Mg Tabcr) 5 mg PO DAILY MARIELLE Stop: 06/28/24 08:59 Last Admin: 05/29/24 11:56 Dose: 5 mg Sodium Chloride (Sodium Chloride 0.65% Na Soln 45 Ml (Caroline)) 2 sprays NA Q4H PRN PRN Reason: Nasal Dryness Stop: 06/28/24 12:38 Tamsulosin HCl (Tamsulosin Hcl 0.4 Mg Cap) 0.4 mg PO QAM MARIELLE Stop: 06/28/24 08:59 Last Admin: 05/29/24 10:10 Dose: 0.4 mg Topiramate (Topiramate 50 Mg Tab) 50 mg PO QAM MARIELLE Stop: 06/28/24 08:59 Last Admin: 05/29/24 11:56 Dose: 50 mg
[2024-05-29] MEDS: ESCITALOPRAM OXALATE 10 MG TAB PO SCH (15:28)
[2024-05-29 23:16] LABS: Appearance Urine Clear (Clear); Bacteria Urine Automated 4+ (None Seen); Bilirubin Urine Negative (Negative); Blood Urine Negative (Negative); Cast Urine Automated 0-2 /lpf (0-2); Color Urine Yellow; Epithelial Cell Urine Auto 0-2 /hpf (0-2); Glucose Urine UA Negative (Negative); Ketones Urine Negative (Negative); Leukocyte Esterase Urine 3+ (Negative); Nitrite Urine Positive (Negative); Protein Urine Negative (Negative); RBC Urine Automated 0-2 /hpf (0-2); Specific Gravity Urine 1.005 (1.000-1.030); Urobilinogen Urine Negative (Negative); WBC Urine Automated >50 /hpf (0-5); pH Urine 6.5 (4.5-7.5)
--- NOTE | 2024-05-30 05:41 | Electrocardiogram Report ---
Test Reason : Blood Pressure : */* mmHG Vent. Rate : 79 BPM Atrial Rate : 79 BPM P-R Int : 204 ms QRS Dur : 152 ms QT Int : 424 ms P-R-T Axes : 108 -41 104 degrees QTcB Int : 486 ms Normal sinus rhythm Left axis deviation Left bundle branch block Abnormal ECG When compared with ECG of 04-Mar-2009 11:59, No significant change Confirmed by Surendra Kelley ([id number]) on 05/30/2024 5:41:31 AM Referred By: REFERRED SELF Confirmed By: Surendra Kelley
--- NOTE | 2024-05-30 05:42 | Electrocardiogram Report ---
Test Reason : Blood Pressure : */* mmHG Vent. Rate : 60 BPM Atrial Rate : 60 BPM P-R Int : 226 ms QRS Dur : 162 ms QT Int : 478 ms P-R-T Axes : 52 -17 56 degrees QTcB Int : 478 ms Sinus rhythm with 1st degree A-V block Left bundle branch block Abnormal ECG When compared with ECG of 28-May-2024 18:48, No significant change was found Confirmed by Surendra Kelley ([id number]) on 05/30/2024 5:42:19 AM Referred By: REFERRED SELF Confirmed By: Surendra Kelley
[2024-05-30] MEDS: ARIPiprazole 5 MG TAB PO SCH (08:10)
[2024-05-30] MEDS: ASPIRIN 81 MG CHEW PO SCH (08:11)
[2024-05-30] MEDS: ENOXAPARIN INJ 40 MG/0.4 ML SYR SQ SCH (08:11)
[2024-05-30] MEDS: cefTRIAXone SODIUM 2,000 MG/50 ML BAG IV SCH (08:21)
--- NOTE | 2024-05-30 11:30 | Hospitalist Progress Note ---
Date of Service May 30, 2024 Assessment & Plan (1) Dementia: Plan: This is an 79 yr old M who has a significant PMH of T2DM, HTN, HLD, Hyperhomocysteinemia, BPH, parkinson disease, hx of dvt and depression who presents to ED after having aggressive behavior with family and intermittent suicidal thoughts. 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 TALLOW REFINER had suicidal thoughts which prompted ED eval He was seen and evaluated by psych, felt low likelihood of harming self 1:1 and suicidal precautions removed hold oxybutnin for now given its anticholinergic side effects - it was started in December with reported increased behavior in January appreciate psych recommendations: will trial escitalopram 5mg daily and abilify 2.5mg daily ECG obtained today due to new psych meds, qtc 469ms, PVC now present, will repeat in a.m obtain cbc, bmp, mag in a.m. #Possible UTI UA abnormal, will empirically start IV rocephin, await Urine culture #T2DM a1c 7.8, on insulin, continue per protocol, BSG adequate #Vitamin D def: Vit d level low, 25.6, will start daily supplementation #CAD/HTN/HLD: continue asa, metoprolol #DVT ppx: SQ Lovenox FULL CODE PCP: Rob Dispo: admitted to medical, pt to need placement as family unable to care for him at home given progressive dementia Ms. Isha Valadez, contact #[phone]. Pt was seen and examined in collaboration with Dr. Garsia, please see addendum I spent a total of 45 minutes coordinating, documenting and providing care for this patient excluding time spent in the performance of separately billed services or time spent by another provider/QHP. Admission and Anticipated Discharge Date Admission Date: May 28, 2024 Supervising Physician Co-Signing Physician Notes Patient is seen and examined at bedside. States feeling well today. Offers no new complaints. Slept well overnight. No signs of agitation. Denies any suicidal thoughts currently. Also denies any chest pain, dyspnea, nausea, vomi ting, abdominal pain. On exam patient is well-built and nourished, no apparent distress, normocephalic atraumatic, EOMI, normal breath sounds, clear to auscultation, S1-S2, no murmur, no pedal edema, abdomen soft, nontender, normal bowel sounds, alert, awake, oriented, grossly no focal deficits. Patient is currently being managed for suspected dementia with behavioral disturbance, Parkinson's disease. Suspected UTI. Leukocytosis trending down. Appreciate psychiatry input. Started on Abilify, escitalopram. Agree with holding oxybutynin for now. Bladder scan as needed to monitor for any urinary retention. Empirically started on IV Rocephin. Follow-up cultures. Case management to help with discharge planning. I personally interviewed and examined the patient at bedside. I have reviewed the advanced practitioner's documentation on the date of service referred in note and agree with plan. Patient's care is coordinated with Grace Espinoza PA-C. Please refer to the documentation above for details of patient's presentation and for discussion of other issues. I spent a total [id number] coordinating, documenting, and providing care for this patient excluding time spent in the performance of separately billed services or time spent by another provider/QHP. Subjective Pt is w/o acute complaint today. Nurse Rachael at [facility] states he had no issues overnight and has been pleasant for her. Denies f/c/s, chest pain, sob, n/v/d, dysuria, increased urg/freq with urination. 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 Review of Systems Review of Systems: All systems reviewed & are unremarkable except as noted in HPI & below Physical Exam Physical Exam: Gen: WD/WN, elderly, M, lying in bed, NAD, A&O x2 person/place but not time HEENT: Normocephalic, atraumatic, conjunctivae moist, sclerae anicteric, mucous membranes moist. Lung: Clear to Auscultation bilaterally, no wheezes/rales/rhonchi Heart: Regular rate, regular rhythm, no murmurs, rubs, or gallops Abdomen: Soft, NT, ND +BS x 4 Extremities: No edema Skin: Warm, no rash, negative turgor. Results & Data Results & Data Vital Signs (Past 12 Hours) Vital Signs Temp Pulse Resp BP Pulse Ox O2 Del Method 05/30/24 07:40 36.8 C 69 18 109/61 96 Room Air Laboratory Results I have independently reviewed and interpreted patient's vit D, B12 and UA Medications Administered Current Inpatient Medications Acetaminophen (Acetaminophen 325 Mg Tab) 650 mg PO QID PRN PRN Reason: pain/fever Stop: 06/27/24 21:52 Aripiprazole (Aripiprazole 5 Mg Tab) 2.5 mg PO QAM [facility] Stop: 06/29/24 08:59 Last Admin: 05/30/24 08:10 Dose: 2.5 mg Aspirin (Aspirin 81 Mg Chew) 81 mg PO DAILY [facility] Stop: 06/29/24 08:59 Last Admin: 05/30/24 08:11 Dose: 81 mg Carbidopa/Levodopa (Carbidopa/Levodopa 25/100mg Tab) 1 tab PO DAILY [facility] Stop: 06/28/24 08:59 Last Admin: 05/30/24 08:11 Dose: 1 tab Cyanocobalamin (Cyanocobalamin (B-12) 500 Mcg Tablet) 1,000 mcg PO DAILY [facility] Stop: 06/28/24 08:59 Last Admin: 05/30/24 08:11 Dose: 1,000 mcg Dextrose (Dextrose 50% 50 Ml Syringe) 25 - 50 ml IV UD PRN; Protocol PRN Reason: Hypoglycemia Protocol Stop: 06/28/24 01:04 Enoxaparin Sodium (Enoxaparin Inj 40 Mg/0.4 Ml Syr) 40 mg SQ QAM [facility] Stop: 06/29/24 08:59 Last Admin: 05/30/24 08:11 Dose: Not Given Escitalopram Oxalate (Escitalopram Oxalate 10 Mg Tab) 5 mg PO QAM [facility] Stop: 06/28/24 14:14 Last Admin: 05/30/24 08:11 Dose: 5 mg Folic Acid (Folic Acid 1 Mg Tab) 1 mg PO QAM [facility] Stop: 06/28/24 08:59 Last Admin: 05/30/24 08:11 Dose: 1 mg Glucagon (Glucagon For Inj 1 Mg Vial) 1 mg SQ UD PRN; Protocol PRN Reason: Hypoglycemia Protocol Stop: 06/28/24 01:04 Glucose (Glucose 40% Gel 15 Gm Tube) 15 - 30 gm PO UD PRN; Protocol PRN Reason: Hypoglycemia Protocol Stop: 06/28/24 01:04 Glucose (Glucose 10 Tab/Tube) 4 - 8 tab PO UD PRN; Protocol PRN Reason: Hypoglycemia Protocol Stop: 06/28/24 01:04 Promethazine HCl (Phenergan) 6.25 mg in 50.25 mls @ 201 mls/hr IV Q6H PRN PRN Reason: Nausea And Vomiting Stop: 06/27/24 21:52 Ceftriaxone Sodium (Rocephin) 2,000 mg in 50 mls @ 100 mls/hr IV Q24H [facility] Stop: 06/09/24 07:59 Last Infusion: 05/30/24 09:31 Dose: Infused Insulin Aspart (Insulin Aspart Per Unit Charge) 0 units SC ACHS [facility] Stop: 06/28/24 01:04 Last Admin: 05/30/24 08:13 Dose: 4 units Insulin Glargine (Lantus Per Unit Charge) 5 units SQ DAILY [facility] Stop: 06/28/24 08:59 Last Admin: 05/30/24 08:16 Dose: 5 units Lactobacillus Acidophilus (Advanced Probiotic 625 Mg Capsule) 1,250 mg PO DAILY [facility] Stop: 06/30/24 08:59 Metoprolol Tartrate (Metoprolol Tartrate 25 Mg Tab) 25 mg PO BID [facility] Stop: 06/28/24 08:59 Last Admin: 05/30/24 08:11 Dose: 25 mg Miscellaneous (Carbohydrates For Hypoglycemia ) 15 - 30 gm PO UD PRN PRN Reason: Hypoglycemia Protocol Stop: 06/28/24 01:04 Oxybutynin Chloride (Oxybutynin Chloride Xl 5 Mg Tabcr) 5 mg PO DAILY [facility] Stop: 06/28/24 08:59 Last Admin: 05/29/24 11:56 Dose: 5 mg Sodium Chloride (Sodium Chloride 0.65% Na Soln 45 Ml ([place])) 2 sprays NA Q4H PRN PRN Reason: Nasal Dryness Stop: 06/28/24 12:38 Tamsulosin HCl (Tamsulosin Hcl 0.4 Mg Cap) 0.4 mg PO QAM [facility] Stop: 06/28/24 08:59 Last Admin: 05/30/24 08:11 Dose: 0.4 mg Topiramate (Topiramate 50 Mg Tab) 50 mg PO QAM [facility] Stop: 06/28/24 08:59 Last Admin: 05/30/24 08:11 Dose: 50 mg Vitamin D (Cholecalciferol 25 Mcg (1000 Units) Tab) 25 mcg PO QAM [facility] Stop: 06/29/24 11:29 ECG Additional Comments: I have independently reviewed and interpreted patient's admitting EKG which revealed: qtc 469ms, pvc now present , NSR
[2024-05-30] MEDS: CHOLECALCIFEROL 25 MCG (1000 UNITS) TAB PO SCH (12:51)
[2024-05-30] MEDS: MELATONIN 3 MG TAB PO PRN (20:48)
--- NOTE | 2024-05-31 05:58 | Electrocardiogram Report ---
Test Reason : Blood Pressure : */* mmHG Vent. Rate : 61 BPM Atrial Rate : 61 BPM P-R Int : 208 ms QRS Dur : 156 ms QT Int : 466 ms P-R-T Axes : 57 0 60 degrees QTcB Int : 469 ms Sinus rhythm with occasional Premature ventricular complexes Left bundle branch block Abnormal ECG When compared with ECG of 29-May-2024 15:23, Premature ventricular complexes are now Present Confirmed by Surendra Kelley ([id number]) on 05/31/2024 5:58:03 AM Referred By: REFERRED SELF Confirmed By: Surendra Kelley
[2024-05-31 06:46] LABS: Basophils # (auto) 0.14 K/uL (0.00-0.20); Basophils % (auto) 1.3 %; Eosinophils # (auto) 0.64 K/uL (0.00-0.50); Hematocrit (blood only) 42.3 % (42.0-52.0); Hemoglobin 14.2 g/dl (14.0-18.0); Immature Granulocytes # (auto) 0.03 K/uL (0.01-0.20); Immature Granulocytes % (auto) 0.3 %; Lymphocytes # (auto) 2.27 K/uL (1.20-3.40); Lymphocytes % (auto) 21.4 %; Mean Corpuscular Hemoglobin 28.5 pg (25.0-34.0); Mean Corpuscular Hgb Conc 33.6 g/dL (32.0-36.0); Mean Corpuscular Volume 84.9 fL (80.0-100.0); Mean Platelet Volume 9.6 fL (9.4-12.4); Monocytes # (auto) 1.06 K/uL (0.11-0.59); Neutrophils # (auto) 6.49 K/uL (1.40-6.50); Platelet Count 232 K/uL (130-400); RDW Coefficient of Variation 14.1 % (11.5-14.5); RDW Standard Deviation 43.4 fL (36.4-46.3); Red Blood Count 4.98 M/uL (4.70-6.10); White Blood Count 10.63 K/ul (4.8-10.8)
[2024-05-31 07:25] LABS: BUN Creatinine Ratio 22.1 (10-20); Calcium 8.9 mg/dl (8.6-10.3); Creatinine Clr Calc Pharmacy 57.5 ml/min; Magnesium 1.8 mg/dl (1.7-2.4); Potassium 3.7 mmol/L (3.5-5.1)
[2024-05-31] MEDS: ADVANCED PROBIOTIC 625 MG CAPSULE PO SCH (09:39)
[2024-05-31] MEDS: SODIUM CHLORIDE 0.65% NA SOLN 45 ML (OCEAN) PRN (10:00)
--- NOTE | 2024-05-31 13:26 | Hospitalist Progress Note ---
Date of Service May 31, 2024 Assessment & Plan (1) Dementia: Plan: This is an 79 yr old M who has a significant PMH of T2DM, HTN, HLD, Hyperhomocysteinemia, BPH, parkinson disease, hx of dvt and depression who presents to ED after having aggressive behavior with family and intermittent suicidal thoughts. 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 OUTER DIAMETER TECHNICIAN had suicidal thoughts which prompted ED eval He was seen and evaluated by psych, felt low likelihood of harming self 1:1 and suicidal precautions removed hold oxybutnin for now given its anticholinergic side effects - it was started in December with reported increased behavior in January appreciate psych recommendations: will trial escitalopram 5mg daily and abilify 2.5mg daily ECG repeat, reviewed and stable #Possible UTI urine culture > 100k e.coli continue IV rocephin Day #2 #T2DM a1c 7.8, on insulin, continue per protocol, BSG adequate #Vitamin D def: Vit d level low, 25.6, will start daily supplementation #CAD/HTN/HLD: continue asa, metoprolol #DVT ppx: SQ Lovenox FULL CODE PCP: Rob Dispo: admitted to medical, pt to need placement as family unable to care for him at home given progressive dementia, he is medically stable when bed available Ms. Isha Valadez, contact #[phone]. Pt was seen and examined in collaboration with Dr. Mcgovern, please see addendum I spent a total of 45 minutes coordinating, documenting and providing care for this patient excluding time spent in the performance of separately billed services or time spent by another provider/QHP. Admission and Anticipated Discharge Date Admission Date: May 28, 2024 Supervising Physician Co-Signing Physician Notes I have seen and discussed the case with the collaborating advanced practitioner. I agree with the above progress notes. I have reviewed and confirmed the patients medical history, the findings on physical examination, and the patients diagnosis and treatment plan with Olga DOUGLASS and agree with the information documented. Mr. Valadez is admitted for behavioral disturbances iso progressive dementia. Patient doing well and agreeable since admission. Patient to continue course of abx. Pending placement at this time I spent a total of 10 minutes coordinating, documenting, and providing care for this patient excluding time spent in the performance of separately billed services. All of the aforementioned completed outside of collaborating with the assigned advanced practitioner for a full treatment plan. I have reviewed the advanced practitioner's documentation, and I agree with, and take responsibility for the plan of care Subjective Pt complains of sinus congestion and sinus pressure. He denies sore throat, cough, dizziness, butt, chest pain, sob, n/v. He is eating/drinking well. Review of Systems Review of Systems: All systems reviewed & are unremarkable except as noted in HPI & below Physical Exam Physical Exam: Gen: WD/WN, elderly, M, sitting up in bedside chair, NAD, A&O x2 person/place but not time HEENT: Normocephalic, atraumatic, conjunctivae moist, sclerae anicteric, mucous membranes moist. Lung: Clear to Auscultation bilaterally, no wheezes/rales/rhonchi Heart: Regular rate, regular rhythm, no murmurs, rubs, or gallops Abdomen: Soft, NT, ND +BS x 4 Extremities: No edema Skin: Warm, no rash, negative turgor. Results & Data Results & Data Vital Signs (Past 12 Hours) Vital Signs Temp Pulse Resp BP Pulse Ox O2 Del Method 05/31/24 07:36 36.5 C 62 16 111/63 94 Room Air Laboratory Results I have independently reviewed and interpreted patient's admitting labs including CBC, BMP, mag Short CBC 05/31/24 Range/Units 06:27 WBC 10.63 (4.8-10.8) K/ul Hgb 14.2 (14.0-18.0) g/dl Hct 42.3 (42.0-52.0) % Plt Count 232 (130-400) K/uL BMP 05/31/24 06:27 Sodium 138 Potassium 3.7 Chloride 106 Carbon Dioxide 26 BUN 25 H Creatinine 1.13 Glucose 167 H Calcium 8.9 Medications Administered Current Inpatient Medications Acetaminophen (Acetaminophen 325 Mg Tab) 650 mg PO QID PRN PRN Reason: pain/fever Stop: 06/27/24 21:52 Aripiprazole (Aripiprazole 5 Mg Tab) 2.5 mg PO QAM [facility] Stop: 06/29/24 08:59 Last Admin: 05/31/24 09:37 Dose: 2.5 mg Aspirin (Aspirin 81 Mg Chew) 81 mg PO DAILY [facility] Stop: 06/29/24 08:59 Last Admin: 05/31/24 09:38 Dose: 81 mg Carbidopa/Levodopa (Carbidopa/Levodopa 25/100mg Tab) 1 tab PO DAILY [facility] Stop: 06/28/24 08:59 Last Admin: 05/31/24 09:38 Dose: 1 tab Cetirizine HCl (Cetirizine Hcl 10 Mg Tablet) 10 mg PO QAM [facility] Stop: 06/30/24 13:29 Cyanocobalamin (Cyanocobalamin (B-12) 500 Mcg Tablet) 1,000 mcg PO DAILY [facility] Stop: 06/28/24 08:59 Last Admin: 05/31/24 09:38 Dose: 1,000 mcg Dextrose (Dextrose 50% 50 Ml Syringe) 25 - 50 ml IV UD PRN; Protocol PRN Reason: Hypoglycemia Protocol Stop: 06/28/24 01:04 Enoxaparin Sodium (Enoxaparin Inj 40 Mg/0.4 Ml Syr) 40 mg SQ QAM [facility] Stop: 06/29/24 08:59 Last Admin: 05/31/24 09:39 Dose: 40 mg Escitalopram Oxalate (Escitalopram Oxalate 10 Mg Tab) 5 mg PO QAM [facility] Stop: 06/28/24 14:14 Last Admin: 05/31/24 09:38 Dose: 5 mg Fluticasone Propionate (Fluticasone Propionate Na Spr 16 Gm Btl) 1 sprays NA DAILY [facility] Stop: 06/30/24 13:44 Folic Acid (Folic Acid 1 Mg Tab) 1 mg PO QAM [facility] Stop: 06/28/24 08:59 Last Admin: 05/31/24 09:38 Dose: 1 mg Glucagon (Glucagon For Inj 1 Mg Vial) 1 mg SQ UD PRN; Protocol PRN Reason: Hypoglycemia Protocol Stop: 06/28/24 01:04 Glucose (Glucose 40% Gel 15 Gm Tube) 15 - 30 gm PO UD PRN; Protocol PRN Reason: Hypoglycemia Protocol Stop: 06/28/24 01:04 Glucose (Glucose 10 Tab/Tube) 4 - 8 tab PO UD PRN; Protocol PRN Reason: Hypoglycemia Protocol Stop: 06/28/24 01:04 Promethazine HCl (Phenergan) 6.25 mg in 50.25 mls @ 201 mls/hr IV Q6H PRN PRN Reason: Nausea And Vomiting Stop: 06/27/24 21:52 Ceftriaxone Sodium (Rocephin) 2,000 mg in 50 mls @ 100 mls/hr IV Q24H [facility] Stop: 06/09/24 07:59 Last Infusion: 05/31/24 10:21 Dose: Infused Insulin Aspart (Insulin Aspart Per Unit Charge) 0 units SC ACHS [facility] Stop: 06/28/24 01:04 Last Admin: 05/31/24 13:10 Dose: 3 units Insulin Glargine (Lantus Per Unit Charge) 5 units SQ DAILY [facility] Stop: 06/28/24 08:59 Last Admin: 05/31/24 09:40 Dose: 5 units Lactobacillus Acidophilus (Advanced Probiotic 625 Mg Capsule) 1,250 mg PO DAILY [facility] Stop: 06/30/24 08:59 Last Admin: 05/31/24 09:39 Dose: 1,250 mg Melatonin (Melatonin 3 Mg Tab) 6 mg PO HS [facility] Stop: 06/30/24 20:59 Metoprolol Tartrate (Metoprolol Tartrate 25 Mg Tab) 25 mg PO BID [facility] Stop: 06/28/24 08:59 Last Admin: 05/31/24 09:38 Dose: 25 mg Miscellaneous (Carbohydrates For Hypoglycemia ) 15 - 30 gm PO UD PRN PRN Reason: Hypoglycemia Protocol Stop: 06/28/24 01:04 Olanzapine (Olanzapine 10 Mg/2.1 Ml Sdv) 2.5 mg IM BID PRN PRN Reason: Agitation Stop: 06/29/24 20:16 Oxybutynin Chloride (Oxybutynin Chloride Xl 5 Mg Tabcr) 5 mg PO DAILY [facility] Stop: 06/28/24 08:59 Last Admin: 05/29/24 11:56 Dose: 5 mg Sodium Chloride (Sodium Chloride 0.65% Na Soln 45 Ml ([place])) 2 sprays NA Q4H PRN PRN Reason: Nasal Dryness Stop: 06/28/24 12:38 Last Admin: 05/31/24 10:00 Dose: 2 sprays Tamsulosin HCl (Tamsulosin Hcl 0.4 Mg Cap) 0.4 mg PO QAM [facility] Stop: 06/28/24 08:59 Last Admin: 05/31/24 09:37 Dose: 0.4 mg Topiramate (Topiramate 50 Mg Tab) 50 mg PO QAM [facility] Stop: 06/28/24 08:59 Last Admin: 05/31/24 09:39 Dose: 50 mg Vitamin D (Cholecalciferol 25 Mcg (1000 Units) Tab) 25 mcg PO [facility] Stop: 06/29/24 11:29 Last Admin: 05/31/24 09:39 Dose: 25 mcg ECG Additional Comments: I have independently reviewed and interpreted patient's admitting EKG which revealed: 62 SR with 1st degree avb, qtc 475ms, no pvc
[2024-05-31] MEDS: FLUTICASONE PROPIONATE NA SPR 16 GM BTL SCH (14:18)
[2024-05-31] MEDS: CETIRIZINE HCL 10 MG TABLET PO SCH (14:18)
[2024-05-31] MEDS: MELATONIN 3 MG TAB PO SCH (20:47)
--- NOTE | 2024-06-01 06:35 | Electrocardiogram Report ---
Test Reason : Blood Pressure : */* mmHG Vent. Rate : 62 BPM Atrial Rate : 62 BPM P-R Int : 224 ms QRS Dur : 158 ms QT Int : 468 ms P-R-T Axes : 62 -4 70 degrees QTcB Int : 475 ms Sinus rhythm with 1st degree A-V block Left bundle branch block Abnormal ECG When compared with ECG of 30-May-2024 10:18, Premature ventricular complexes are no longer Present Confirmed by Surendra Kelley ([id number]) on 06/01/2024 6:35:09 AM Referred By: REFERRED SELF Confirmed By: Surendra Kelley
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
--- NOTE | 2024-06-02 15:09 | Hospitalist Progress Note ---
Date of Service June 02, 2024 Assessment & Plan (1) Dementia: Plan: This is an 79 yr old M who has a significant PMH of T2DM, HTN, HLD, Hyperhomocysteinemia, BPH, parkinson disease, hx of dvt and depression who presents to ED after having aggressive behavior with family and intermittent suicidal thoughts. 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 CHILDREN'S INSTITUTION ATTENDANT had suicidal thoughts which prompted ED eval He was seen and evaluated by psych, felt low likelihood of harming self 1:1 and suicidal precautions removed Holding Oxybutynin for now given its anticholinergic side effects - it was started in December with reported increased behavior in January Appreciate psych recommendations: will trial escitalopram 5mg daily and Abilify 2.5mg daily ECG repeated, reviewed and stable #Possible UTI urine culture > 100k e.coli, pansensitive Continue IV rocephin Day #4 #T2DM a1c 7.8, on insulin, continue per protocol, BSG adequate #Vitamin D def: Vit d level low, 25.6, will start daily supplementation #CAD/HTN/HLD: continue asa, metoprolol DVT ppx: SQ Lovenox Code: FULL PCP: Rob Dispo: admitted to medical, pt to need placement as family unable to care for him at home given progressive dementia, he is medically stable when bed available Evaluated for potential placement today at memory care. Per CM today, facility is reviewing paperwork provided by family. Ms. Isha Valadez, contact #[phone]. Pt was seen and examined in collaboration with Dr. Mcgovern, please see addendum I spent a total of 40 minutes coordinating, documenting and providing care for this patient excluding time spent in the performance of separately billed services or time spent by another provider/QHP. Admission and Anticipated Discharge Date Admission Date: May 28, 2024 Supervising Physician Co-Signing Physician Notes I have seen and discussed the case with the collaborating advanced practitioner. I agree with the above progress notes. I have reviewed and confirmed the patients medical history, the findings on physical examination, and the patients diagnosis and treatment plan with Brody DOUGLASS and agree with the information documented. pending placement I have reviewed the advanced practitioner's documentation, and I agree with, and take responsibility for the plan of care Subjective Patient resting comfortably in bedside chair. Had just ambulated from bathroom back with help of RAW CHEESE WORKER. Offers no new complaints today. No pain. Underwent eval for memory care facility today. No CP, SOB, N/V, abd pain. Review of Systems Review of Systems: At least ten systems reviewed and negative except as noted in the HPI. Physical Exam Physical Exam: Gen: WD/WN, elderly, M, sitting up in bedside chair, NAD, pleasant, A&O x2 HEENT: Normocephalic, atraumatic Lung: Clear to Auscultation bilaterally Heart: Regular rate, regular rhythm Abdomen: Soft, NT, ND +BS Extremities: No edema Skin: Warm, no rash Results & Data Results & Data Vital Signs (Past 12 Hours) Vital Signs Temp Pulse Resp BP Pulse Ox O2 Del Method 06/02/24 07:19 36.8 C 65 16 114/62 91 Room Air
[2024-06-02] MEDS: OLANZapine 10 MG/2.1 ML SDV IM PRN (16:23)
--- NOTE | 2024-06-03 11:31 | Hospitalist Progress Note ---
Date of Service June 03, 2024 Assessment & Plan (1) Dementia: Plan: This is an 79 yr old M who has a significant PMH of T2DM, HTN, HLD, Hyperhomocysteinemia, BPH, parkinson disease, hx of dvt and depression who presents to ED after having aggressive behavior with family and intermittent suicidal thoughts. 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 FEEDER OPERATOR AUTOMATIC had suicidal thoughts which prompted ED eval He was seen and evaluated by psych, felt low likelihood of harming self 1:1 and suicidal precautions removed Holding Oxybutynin for now given its anticholinergic side effects - it was started in December with reported increased behavior in January Appreciate psych recommendations: will trial escitalopram 5mg daily and Abilify 2.5mg daily ECG repeated, reviewed and stable #Acute Cystitis urine culture > 100k e.coli, pansensitive Completed 5 day course of IV Rocephin on 06/03 #T2DM a1c 7.8, on insulin, continue per protocol, BSG adequate #Vitamin D def: Vit d level low, 25.6, will start daily supplementation #CAD/HTN/HLD: continue asa, metoprolol, VSS DVT ppx: SQ Lovenox Code: FULL PCP: Rob Dispo: admitted to medical, pt to need placement as family unable to care for him at home given progressive dementia, he is medically stable when bed available Ms. Isha Valadez, contact #[phone]. Pt was seen and examined in collaboration with Dr. Mcgovern, please see addendum I spent a total of 39 minutes coordinating, documenting and providing care for this patient excluding time spent in the performance of separately billed services or time spent by another provider/QHP. Admission and Anticipated Discharge Date Admission Date: May 28, 2024 Supervising Physician Co-Signing Physician Notes I have seen and discussed the case with the collaborating advanced practitioner. I agree with the above progress notes. I have reviewed and confirmed the patients medical history, the findings on physical examination, and the patients diagnosis and treatment plan with Olga DOUGLASS and agree with the information documented. pending placement Encourage reorientation and avoid benzos/further antipsychotics I have reviewed the advanced practitioner's documentation, and I agree with, and take responsibility for the plan of care Subjective Patient resting comfortably in bedside chair. Had just ambulated from bathroom back with help of SENIOR SCHEDULER. Offers no new complaints today. No pain. Underwent eval for memory care facility today. No CP, SOB, N/V, abd pain. Physical Exam Physical Exam: Gen: WD/WN, elderly, M, sitting up in bedside chair, NAD, A&O x2 person/place but not time HEENT: Normocephalic, atraumatic, conjunctivae moist, sclerae anicteric, mucous membranes moist. Lung: Clear to Auscultation bilaterally, no wheezes/rales/rhonchi Heart: Regular rate, regular rhythm, no murmurs, rubs, or gallops Abdomen: Soft, NT, ND +BS x 4 Extremities: No edema Skin: Warm, no rash, negative turgor. Results & Data Results & Data Vital Signs (Past 12 Hours) Vital Signs Temp Pulse Resp BP Pulse Ox O2 Del Method 06/03/24 07:11 36.3 C L 63 16 124/67 93 Room Air
--- NOTE | 2024-06-04 10:27 | Hospitalist Progress Note ---
Date of Service June 04, 2024 Assessment & Plan (1) Dementia: Plan: This is an 79 yr old M who has a significant PMH of T2DM, HTN, HLD, Hyperhomocysteinemia, BPH, parkinson disease, hx of dvt and depression who presents to ED after having aggressive behavior with family and intermittent suicidal thoughts. 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 PRINCIPAL TECHNOLOGIST had suicidal thoughts which prompted ED eval He was seen and evaluated by psych, felt low likelihood of harming self 1:1 and suicidal precautions removed Holding Oxybutynin for now given its anticholinergic side effects - it was started in December with reported increased behavior in January Appreciate psych recommendations: will trial escitalopram 5mg daily and Abilify 2.5mg daily ECG repeated, reviewed and stable He is tolerating new medications and has been pleasant/cooperative with staff Per my clinical judgement given pts underlying progressive dementia he does not have capacity to make decisions for self and will need to be made by next of Kin/POA #Acute Cystitis urine culture > 100k e.coli, pansensitive Completed 5 day course of IV Rocephin on 06/03 #T2DM a1c 7.8, on insulin, blood sugar has remained stable will d/c novolog as pt has not been requiring continue lantus 5units with parameters, change accuchecks to daily to limit finger sticks #Vitamin D def: Vit d level low, 25.6, will start daily supplementation #CAD/HTN/HLD: continue asa, metoprolol, VSS DVT ppx: SQ Lovenox Code: FULL PCP: Rob Dispo: admitted to medical, had extensive conversation with Isha. She is now wishing to take him home, but would like to discuss with CM regarding options for her at home. We discussed we would have CM reach out to her tomorrow to determine what services Efren would qualify for and hopes to send him home tomorrow. Ms. Isha Valadez, contact #[phone]. Pt was seen and examined in collaboration with Dr. Mcgovern, please see addendum I spent a total of 40 minutes coordinating, documenting and providing care for this patient excluding time spent in the performance of separately billed services or time spent by another provider/QHP. Admission and Anticipated Discharge Date Admission Date: May 28, 2024 Supervising Physician Co-Signing Physician Notes I have seen and discussed the case with the collaborating advanced practitioner. I agree with the above progress notes. I have reviewed and confirmed the patients medical history, the findings on physical examination, and the patients diagnosis and treatment plan with Olga DOUGLASS and agree with the information documented. pending placement Encourage reorientation and avoid benzos/further antipsychotics I have reviewed the advanced practitioner's documentation, and I agree with, and take responsibility for the plan of care Subjective MYKEL. He offers no acute concerns. He wishes he could go home. He denies f/c/s, chest pain, sob, n/v. He is tolerating diet. He cleaned himself up in the bathroom this morning. Review of Systems Review of Systems: All systems reviewed & are unremarkable except as noted in HPI & below Physical Exam Physical Exam: Gen: WD/WN, elderly, M, sitting up in bed, NAD, A&O x2 person/place but not time HEENT: Normocephalic, atraumatic, conjunctivae moist, sclerae anicteric, mucous membranes moist. Lung: Clear to Auscultation bilaterally, no wheezes/rales/rhonchi Heart: RRR no murmurs, rubs, or gallops Abdomen: Soft, NT, ND +BS x 4 Extremities: No edema Skin: Warm, no rash, negative turgor. Results & Data Results & Data Vital Signs (Past 12 Hours) Vital Signs Temp Pulse Resp BP Pulse Ox O2 Del Method 06/04/24 07:33 36.4 C L 59 L 16 107/60 96 Room Air Medications Administered Current Inpatient Medications Acetaminophen (Acetaminophen 325 Mg Tab) 650 mg PO QID PRN PRN Reason: pain/fever Stop: 06/27/24 21:52 Aripiprazole (Aripiprazole 5 Mg Tab) 2.5 mg PO QAM [facility] Stop: 06/29/24 08:59 Last Admin: 06/04/24 08:18 Dose: 2.5 mg Aspirin (Aspirin 81 Mg Chew) 81 mg PO DAILY [facility] Stop: 06/29/24 08:59 Last Admin: 06/04/24 08:18 Dose: 81 mg Carbidopa/Levodopa (Carbidopa/Levodopa 25/100mg Tab) 1 tab PO DAILY [facility] Stop: 06/28/24 08:59 Last Admin: 06/04/24 08:18 Dose: 1 tab Cetirizine HCl (Cetirizine Hcl 10 Mg Tablet) 10 mg PO QAM [facility] Stop: 06/30/24 13:44 Last Admin: 06/04/24 08:18 Dose: 10 mg Cyanocobalamin (Cyanocobalamin (B-12) 500 Mcg Tablet) 1,000 mcg PO DAILY [facility] Stop: 06/28/24 08:59 Last Admin: 06/04/24 08:19 Dose: 1,000 mcg Dextrose (Dextrose 50% 50 Ml Syringe) 25 - 50 ml IV UD PRN; Protocol PRN Reason: Hypoglycemia Protocol Stop: 06/28/24 01:04 Enoxaparin Sodium (Enoxaparin Inj 40 Mg/0.4 Ml Syr) 40 mg SQ QAM [facility] Stop: 06/29/24 08:59 Last Admin: 06/04/24 08:19 Dose: 40 mg Escitalopram Oxalate (Escitalopram Oxalate 10 Mg Tab) 5 mg PO QAM [facility] Stop: 06/28/24 14:14 Last Admin: 06/04/24 08:19 Dose: 5 mg Fluticasone Propionate (Fluticasone Propionate Na Spr 16 Gm Btl) 1 sprays NA DAILY [facility] Stop: 06/30/24 13:44 Last Admin: 06/04/24 08:19 Dose: 1 sprays Folic Acid (Folic Acid 1 Mg Tab) 1 mg PO QAM [facility] Stop: 06/28/24 08:59 Last Admin: 06/04/24 08:19 Dose: 1 mg Glucagon (Glucagon For Inj 1 Mg Vial) 1 mg SQ UD PRN; Protocol PRN Reason: Hypoglycemia Protocol Stop: 06/28/24 01:04 Glucose (Glucose 40% Gel 15 Gm Tube) 15 - 30 gm PO UD PRN; Protocol PRN Reason: Hypoglycemia Protocol Stop: 06/28/24 01:04 Glucose (Glucose 10 Tab/Tube) 4 - 8 tab PO UD PRN; Protocol PRN Reason: Hypoglycemia Protocol Stop: 06/28/24 01:04 Promethazine HCl (Phenergan) 6.25 mg in 50.25 mls @ 201 mls/hr IV Q6H PRN PRN Reason: Nausea And Vomiting Stop: 06/27/24 21:52 Insulin Aspart (Insulin Aspart Per Unit Charge) 0 units SC ACHS [facility] Stop: 06/28/24 01:04 Last Admin: 06/04/24 08:17 Dose: Not Given Insulin Glargine (Lantus Per Unit Charge) 5 units SQ DAILY [facility] Stop: 06/28/24 08:59 Last Admin: 06/04/24 08:23 Dose: 5 units Lactobacillus Acidophilus (Advanced Probiotic 625 Mg Capsule) 1,250 mg PO DAILY [facility] Stop: 06/30/24 08:59 Last Admin: 06/04/24 08:19 Dose: 1,250 mg Melatonin (Melatonin 3 Mg Tab) 6 mg PO HS [facility] Stop: 06/30/24 20:59 Last Admin: 06/03/24 21:09 Dose: 6 mg Metoprolol Tartrate (Metoprolol Tartrate 25 Mg Tab) 25 mg PO BID [facility] Stop: 06/28/24 08:59 Last Admin: 06/03/24 21:10 Dose: 25 mg Miscellaneous (Carbohydrates For Hypoglycemia ) 15 - 30 gm PO UD PRN PRN Reason: Hypoglycemia Protocol Stop: 06/28/24 01:04 Olanzapine (Olanzapine 10 Mg/2.1 Ml Sdv) 2.5 mg IM BID PRN PRN Reason: Agitation Stop: 06/29/24 20:16 Last Admin: 06/02/24 16:23 Dose: 2.5 mg Oxybutynin Chloride (Oxybutynin Chloride Xl 5 Mg Tabcr) 5 mg PO DAILY [facility] Stop: 06/28/24 08:59 Last Admin: 05/29/24 11:56 Dose: 5 mg Sodium Chloride (Sodium Chloride 0.65% Na Soln 45 Ml ([place])) 2 sprays NA Q4H PRN PRN Reason: Nasal Dryness Stop: 06/28/24 12:38 Last Admin: 05/31/24 10:00 Dose: 2 sprays Tamsulosin HCl (Tamsulosin Hcl 0.4 Mg Cap) 0.4 mg PO QAM [facility] Stop: 06/28/24 08:59 Last Admin: 06/04/24 08:20 Dose: 0.4 mg Topiramate (Topiramate 50 Mg Tab) 50 mg PO QAM [facility] Stop: 06/28/24 08:59 Last Admin: 06/04/24 08:20 Dose: 50 mg Vitamin D (Cholecalciferol 25 Mcg (1000 Units) Tab) 25 mcg PO QAM [facility] Stop: 06/29/24 11:29 Last Admin: 06/04/24 08:19 Dose: 25 mcg
[2024-06-04] MEDS: OLANZapine 10 MG/2.1 ML SDV IM STA (20:01)
[2024-06-05] MEDS: OLANZapine 5 MG TABLET PO STA (13:16)
--- NOTE | 2024-06-05 13:49 | Hospitalist Progress Note ---
Date of Service June 05, 2024 Assessment & Plan (1) Dementia: Plan: This is an 79 yr old M who has a significant PMH of T2DM, HTN, HLD, Hyperhomocysteinemia, BPH, parkinson disease, hx of dvt and depression who presents to ED after having aggressive behavior with family and intermittent suicidal thoughts. 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 MAINTENANCE ANALYST had suicidal thoughts which prompted ED eval He was seen and evaluated by psych, felt low likelihood of harming self 1:1 and suicidal precautions removed Holding Oxybutynin for now given its anticholinergic side effects - it was started in December with reported increased behavior in January Appreciate psych recommendations: will trial escitalopram 5mg daily and Abilify 2.5mg daily ECG repeated, reviewed and stable Per my clinical judgement given pts underlying progressive dementia he does not have capacity to make decisions for self and will need to be made by next of Kin/POA Update as of 06/05 He is tolerating new medications and has been pleasant/cooperative with staff u ntil last night he tried to elope Again today he was agitated with staff because he wanted to leave. He seems to be becoming increasing agitated with thoughts of wanting to go home. I spoke extensively with Isha regarding by concerns for him returning home. Unfortunately financial constraints is why she wants to trial bringing him home. We discussed the concern for elopement of pt. In event pt discharged home a DMV form was filled out for license suspension. She reports sons will remove vehicle as she does not drive either. Discussed with CM regarding options. Will look into seeing if pt would qualify for hospice services given advanced dementia vs HH at home. Discussed with psych, Dr. Manzano, she recommends increasing Abilify to 2.5mg bid and adding a prn 2.5mg dose daily for agitation. If this doesn't work she recommends to reach back out to psych for additional recs It is felt that pt likely did well initially, but given that he has been here several days he is ready to go home; therefore agitation is out of wanting to go home #Acute Cystitis urine culture > 100k e.coli, pansensitive Completed 5 day course of IV Rocephin on 06/03 #T2DM a1c 7.8, on insulin, blood sugar has remained stable will d/c insulin coverage as pts BSG adequate, 118. monitor FBS, allow for liberal control given age #Vitamin D def: Vit d level low, 25.6, will start daily supplementation #CAD/HTN/HLD: continue asa, metoprolol, VSS DVT ppx: SQ Lovenox Code: FULL PCP: Rob Dispo: admitted to medical, had extensive conversation with Isha again. She is still planning to take him home, possibly as early as tomorrow. Discussed with mckenzie in who will contact . DMV form filled out. Ms. Isha Valadez, contact #[phone]. Pt was seen and examined in collaboration with Dr. Mcgovern, please see addendum I spent a total of 51 minutes coordinating, documenting and providing care for this patient excluding time spent in the performance of separately billed services or time spent by another provider/QHP. Admission and Anticipated Discharge Date Admission Date: May 28, 2024 Supervising Physician Co-Signing Physician Notes I have seen and discussed the case with the collaborating advanced practitioner. I agree with the above progress notes. I have reviewed and confirmed the patients medical history, the findings on physical examination, and the patients diagnosis and treatment plan with Olga DOUGLASS and agree with the information documented. discussion ongoing for placement v home with given financial concerns with care required. Patient agitated this after noon requiring brief physical restraint Reached out to psych for addition recommendations as above. I spent a total of 10 minutes coordinating, documenting, and providing care for this patient excluding time spent in the performance of separately billed services. All of the aforementioned completed while collaborating with the assigned advanced practitioner for a full treatment plan. Please see their addendum for further details. I have reviewed the advanced practitioner's documentation, and I agree with, and take responsibility for the plan of care Subjective Pt reportedly got dressed and tried to leave last night around 1800. He required security to re direct him. During the morning today he was pleasant and offers no acute concerns. He is hopeful to go home. Unfortunately around around 1255 he again got agitated. He got himself dressed and grabbed a mop and wanted to leave. When asked where he was he states, "at the clinic in [place] Security was present at bedside. Review of Systems Review of Systems: All systems reviewed & are unremarkable except as noted in HPI & below Physical Exam Physical Exam: Gen: WD/WN, elderly, M, sitting up at edge of bed, NAD, A&O x1 to person only HEENT: Normocephalic, atraumatic, conjunctivae moist, sclerae anicteric, mucous membranes moist. Lung: Clear to Auscultation bilaterally, no wheezes/rales/rhonchi Heart: RRR no murmurs, rubs, or gallops Abdomen: Soft, NT, ND +BS x 4 Extremities: No edema Skin: Warm, no rash, negative turgor. Results & Data Results & Data Vital Signs (Past 12 Hours) Vital Signs Temp Pulse Resp BP Pulse Ox O2 Del Method 06/05/24 07:32 36.4 C L 86 16 121/67 95 Room Air Medications Administered Current Inpatient Medications Acetaminophen (Acetaminophen 325 Mg Tab) 650 mg PO QID PRN PRN Reason: pain/fever Stop: 06/27/24 21:52 Aripiprazole (Aripiprazole 5 Mg Tab) 2.5 mg PO QAM [facility] Stop: 06/29/24 08:59 Last Admin: 06/05/24 08:28 Dose: 2.5 mg Aspirin (Aspirin 81 Mg Chew) 81 mg PO DAILY [facility] Stop: 06/29/24 08:59 Last Admin: 06/05/24 08:29 Dose: 81 mg Carbidopa/Levodopa (Carbidopa/Levodopa 25/100mg Tab) 1 tab PO DAILY [facility] Stop: 06/28/24 08:59 Last Admin: 06/05/24 08:30 Dose: 1 tab Cetirizine HCl (Cetirizine Hcl 10 Mg Tablet) 10 mg PO QAM [facility] Stop: 06/30/24 13:44 Last Admin: 06/05/24 08:30 Dose: 10 mg Cyanocobalamin (Cyanocobalamin (B-12) 500 Mcg Tablet) 1,000 mcg PO DAILY [facility] Stop: 06/28/24 08:59 Last Admin: 06/05/24 08:30 Dose: 1,000 mcg Dextrose (Dextrose 50% 50 Ml Syringe) 25 - 50 ml IV UD PRN; Protocol PRN Reason: Hypoglycemia Protocol Stop: 06/28/24 01:04 Enoxaparin Sodium (Enoxaparin Inj 40 Mg/0.4 Ml Syr) 40 mg SQ QAM [facility] Stop: 06/29/24 08:59 Last Admin: 06/05/24 08:30 Dose: 40 mg Escitalopram Oxalate (Escitalopram Oxalate 10 Mg Tab) 10 mg PO QAM [facility] Stop: 07/06/24 08:59 Fluticasone Propionate (Fluticasone Propionate Na Spr 16 Gm Btl) 1 sprays NA DAILY [facility] Stop: 06/30/24 13:44 Last Admin: 06/05/24 08:32 Dose: 1 sprays Folic Acid (Folic Acid 1 Mg Tab) 1 mg PO QAM [facility] Stop: 06/28/24 08:59 Last Admin: 06/05/24 08:31 Dose: 1 mg Glucagon (Glucagon For Inj 1 Mg Vial) 1 mg SQ UD PRN; Protocol PRN Reason: Hypoglycemia Protocol Stop: 06/28/24 01:04 Glucose (Glucose 40% Gel 15 Gm Tube) 15 - 30 gm PO UD PRN; Protocol PRN Reason: Hypoglycemia Protocol Stop: 06/28/24 01:04 Glucose (Glucose 10 Tab/Tube) 4 - 8 tab PO UD PRN; Protocol PRN Reason: Hypoglycemia Protocol Stop: 06/28/24 01:04 Promethazine HCl (Phenergan) 6.25 mg in 50.25 mls @ 201 mls/hr IV Q6H PRN PRN Reason: Nausea And Vomiting Stop: 06/27/24 21:52 Insulin Glargine (Lantus Per Unit Charge) 5 units SQ DAILY [facility] Stop: 06/28/24 08:59 Last Admin: 06/05/24 08:35 Dose: 5 units Lactobacillus Acidophilus (Advanced Probiotic 625 Mg Capsule) 1,250 mg PO DAILY [facility] Stop: 06/30/24 08:59 Last Admin: 06/05/24 08:31 Dose: 1,250 mg Melatonin (Melatonin 3 Mg Tab) 6 mg PO HS [facility] Stop: 06/30/24 20:59 Last Admin: 06/04/24 20:02 Dose: 6 mg Metoprolol Tartrate (Metoprolol Tartrate 25 Mg Tab) 25 mg PO BID [facility] Stop: 06/28/24 08:59 Last Admin: 06/05/24 08:31 Dose: 25 mg Miscellaneous (Carbohydrates For Hypoglycemia ) 15 - 30 gm PO UD PRN PRN Reason: Hypoglycemia Protocol Stop: 06/28/24 01:04 Olanzapine (Olanzapine 10 Mg/2.1 Ml Sdv) 2.5 mg IM BID PRN PRN Reason: Agitation Stop: 06/29/24 20:16 Last Admin: 06/02/24 16:23 Dose: 2.5 mg Oxybutynin Chloride (Oxybutynin Chloride Xl 5 Mg Tabcr) 5 mg PO DAILY [facility] Stop: 06/28/24 08:59 Last Admin: 05/29/24 11:56 Dose: 5 mg Sodium Chloride (Sodium Chloride 0.65% Na Soln 45 Ml ([place])) 2 sprays NA Q4H PRN PRN Reason: Nasal Dryness Stop: 06/28/24 12:38 Last Admin: 05/31/24 10:00 Dose: 2 sprays Tamsulosin HCl (Tamsulosin Hcl 0.4 Mg Cap) 0.4 mg PO QAM [facility] Stop: 06/28/24 08:59 Last Admin: 06/05/24 08:31 Dose: 0.4 mg Topiramate (Topiramate 50 Mg Tab) 50 mg PO QAM [facility] Stop: 06/28/24 08:59 Last Admin: 06/05/24 08:28 Dose: 50 mg Vitamin D (Cholecalciferol 25 Mcg (1000 Units) Tab) 25 mcg PO QAM [facility] Stop: 06/29/24 11:29 Last Admin: 06/05/24 08:30 Dose: 25 mcg
[2024-06-05] MEDS ORDERED: ARIPiprazole 5 MG TAB PO PRN (14:13)
[2024-06-05] MEDS: ARIPiprazole 5 MG TAB PO SCH (17:34)
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
[2024-06-06] MEDS ORDERED: ESCITALOPRAM OXALATE 10 MG TAB PO SCH (09:00)
[2024-06-06] MEDS: ESCITALOPRAM OXALATE 10 MG TAB PO SCH (09:51)
[2024-06-06 10:02] VITALS: BP 120/70; PULSE 58; RESP 20; TEMP 97.9; O2SAT 94
== END 2024-06-06 12:57 | disposition hospice, home (50) | DRG 884 ==
LOC: ED 18:27 → EDINP 21:50 → SUATTDRO 21:50 → 3W 05-29 01:05